=== PATIENT | female | born 1990 | race African-American/Black ===

== ENCOUNTER 2018-02-10 14:22 | Emergency (ER) | payer OTHER ==
[~2018-02-10] VITALS: Ht 167.6 cm; Wt 59.0 kg
[2018-02-10 14:26] VITALS: BP 127/87
== END 2018-02-10 16:02 | disposition left against medical advice (07) ==
LOC: ER 14:22
DX: Z53.21 Procedure and treatment not carried out due to patient leaving prior to being seen by health care provider (principal)